=== PATIENT | male | born 1950 | race Caucasian/White ===

== ENCOUNTER 2018-07-09 11:05 | Emergency (ER) | payer MEDICARE ==
[~2018-07-09] VITALS: Ht 172.7 cm; Wt 86.2 kg
--- NOTE | 2018-07-09 11:38 | NUR ---
PT IS IN ROOM #2A. PT DENIES PAIN AT THIS TIME. DR PARRY EVALUATED THE PT.
[2018-07-09 11:39] LABS: BASOPHILS % (AUTO) 0.6 % (0.0-2.0); EOSINOPHILS % (AUTO) 0.4 % (0.0-7.0); HEMATOCRIT 38.9 % (36.7-47.1); HEMOGLOBIN 13.5 g/dL (12.5-16.3); LYMPHOCYTES # (AUTO) 1.9 K/uL (20.0-40.0); LYMPHOCYTES % (AUTO) 33.8 % (20.5-51.5); MEAN CORPUSCULAR HEMOGLOBIN 36.5 uug (23.8-33.4); MEAN CORPUSCULAR HGB CONC 35 g/dL (32.5-36.3); MEAN CORPUSCULAR VOLUME 105.2 fL (73.0-96.2); MONOCYTES # (AUTO) 0.4 K/uL (2.0-10.0); MONOCYTES % (AUTO) 6.7 % (0.0-11.0); NEUTROPHILS # (AUTO) 3.3 K/uL (1.8-8.9); NEUTROPHILS % (AUTO) 58.5 % (38.5-71.5); PLATELET COUNT (AUTO) 219 K/uL (152-348); WHITE BLOOD COUNT (AUTO) 5.7 K/uL (3.6-10.2)
[2018-07-09 11:43] LABS: CREATININE 0.7 mg/dL (0.6-1.3); POTASSIUM 3.7 mmol/L (3.5-5.1)
--- NOTE | 2018-07-09 11:50 | NUR ---
Pt is sleeping at this time with no s/s of acute distress noted.
[2018-07-09 11:56] LABS: BILIRUBIN,DIRECT 0.1 mg/dL (0.0-0.2); BILIRUBIN,TOTAL 0.4 mg/dL (0.2-1.0); TOTAL PROTEIN, SERUM 6.9 g/dL (6.4-8.2)
--- NOTE | 2018-07-09 16:13 | NUR ---
Patient given written and verbal discharge instructions. Patient verbalizes understanding of instructions. Patient is ambulatory with walker. Refuses offer of [facility] placement, Patient refused list of available shelters in surrounding area. Pt was provided with a meal, was offered new clothes but also refused. Pt stated " I don't need anything, I just want to go ".
[2018-07-09 16:17] VITALS: BP 135/79
== END 2018-07-09 16:18 | disposition home or self-care (01) ==
LOC: ER 11:07
DX: R07.9 Chest pain, unspecified (principal); I25.2 Old myocardial infarction; Z59.0 Homelessness
CPT/HCPCS: 36415; 71045; 80048; 80076; 84484 ×2; 85025; 93005 ×2; 99284; G0480; 70030-TC; A4663

== ENCOUNTER 2019-12-22 10:10 | Inpatient (IN) | payer MEDICARE, OTHER ==
[~2019-12-22] VITALS: Ht 172.7 cm; Wt 90.3 kg
--- NOTE | 2019-12-22 10:16 | NUR ---
Dr. Raymundo here at the bedside for MSE.
[2019-12-22] MEDS ORDERED: LORAZEPAM 2 MG/1 ML VIAL ONE (10:20)
--- NOTE | 2019-12-22 10:23 | NUR ---
IM Ativan given one time per MD. Pt noted to be aggressive and uncooperative with plan of care. deputy building guard at the bedside and pt placed on two-point restraints.
[2019-12-22] MEDS ORDERED: LORAZEPAM 2 MG/1 ML VIAL IM ONE (10:30)
[2019-12-22 11:02] LABS: BASOPHILS % (AUTO) 0.4 % (0.0-2.0); EOSINOPHILS % (AUTO) 0.1 % (0.0-7.0); HEMATOCRIT 40.4 % (36.7-47.1); HEMOGLOBIN 13.3 g/dL (12.5-16.3); LYMPHOCYTES # (AUTO) 1.3 K/uL (20.0-40.0); MEAN CORPUSCULAR HEMOGLOBIN 30.3 uug (23.8-33.4); MEAN CORPUSCULAR HGB CONC 33 g/dL (32.5-36.3); MEAN CORPUSCULAR VOLUME 92.1 fL (73.0-96.2); MONOCYTES # (AUTO) 0.8 K/uL (2.0-10.0); MONOCYTES % (AUTO) 6.6 % (0.0-11.0); NEUTROPHILS # (AUTO) 9.8 K/uL (1.8-8.9); NEUTROPHILS % (AUTO) 81.9 % (38.5-71.5); PLATELET COUNT (AUTO) 209 K/uL (152-348); RED BLOOD CELL COUNT(AUTO) 4.38 MIL/uL (4.06-5.63); WHITE BLOOD COUNT (AUTO) 11.9 K/uL (3.6-10.2)
[2019-12-22 11:16] LABS: CARBON DIOXIDE 23 mmol/L (21-32); CHLORIDE 105 mmol/L (98-107); CREATININE 1.1 mg/dL (0.6-1.3); GLUCOSE 89 mg/dL (74-106); POTASSIUM 3.8 mmol/L (3.5-5.1); UREA NITROGEN, BLOOD 10 mg/dL (7-18)
[2019-12-22 11:21] LABS: ALANINE AMINOTRANSFERASE 12 U/L (16-63); ALKALINE PHOSPHATASE 117 U/L (50-136); ASPARTATE AMINOTRANSFERASE 19 U/L (15-37); BILIRUBIN,DIRECT 0.2 mg/dL (0.0-0.2); BILIRUBIN,TOTAL 0.8 mg/dL (0.2-1.0); TOTAL PROTEIN, SERUM 7.2 g/dL (6.4-8.2)
[2019-12-22 11:25] LABS: ETHANOL 16 MG/DL (0-0)
[2019-12-22 11:28] LABS: ACETAMINOPHEN < 2.0 ug/mL (10-30)
--- NOTE | 2019-12-22 11:41 | NUR ---
Spoke with Paolo Genao (Crisis team) on the telephone for psych crisis eval and stated he'll be in to see pt.
[2019-12-22 11:50] LABS: THYROID STIMULATING HORMONE 2.724 mIU/mL (0.358-3.740)
[2019-12-22 11:52] LABS: *BILIRUBIN,URIN NEGATIVE (NEGATIVE); *BLOOD, URINE NEGATIVE (NEGATIVE); *CLARITY,URINE CLEAR (CLEAR); *COLOR,URINE YELLOW (YELLOW); *KETONES,URINE 1+ (NEGATIVE); *UROBILINOGEN,URINE 0.2 E.U./dl (NORMAL); LEUKOCYTE ESTERASE ,URINE NEGATIVE (NEGATIVE); NITRITE, URINE NEGATIVE (NEGATIVE); UGLUCOSE NEGATIVE (NEGATIVE)
[2019-12-22 12:07] LABS: BACTERIA,URINE NONE SEEN /HPF (NONE SEEN); MUCUS,URINE FEW /LPF (0-FEW); RBC,URINE 0-3 /HPF (0-3); SQUAMOUS EPITHELIAL CELL,UR FEW /HPF (NONE SEEN); WBC,URINE 0-3 /HPF (0-3)
[2019-12-22 12:22] LABS: *AMPHETAMINE, URINE NEGATIVE (NEGATIVE); *BARBITURATE, URINE NEGATIVE (NEGATIVE); *CANNABINOID, URINE NEGATIVE (NEGATIVE); *COCCAINE, URINE NEGATIVE (NEGATIVE); *OPIATE, URINE NEGATIVE (NEGATIVE); *PHENCYCLIDINE SCREEN,URINE NEGATIVE (NEGATIVE)
--- NOTE | 2019-12-22 12:32 | NUR ---
Paolo Mae here to phuong pt. Addendum: 12/22/19 at 1603 by SULEMA Pt placed on [id number] hold.
--- NOTE | 2019-12-22 15:00 | NUR ---
Full telephone SBAR report given to SHAD Hirsch.
--- NOTE | 2019-12-22 15:50 | NUR ---
Wheeled pt to [facility] for admission. Pt stable and nad noted upon admission.
[2019-12-22 16:15] VITALS: BP 105/75
--- NOTE | 2019-12-22 16:15 | NUR ---
Gps/Elevator Runner- Patient received from ER via wheel chair. . Aware of date and time , oriented x 2, forgetful. Unsteady gait. ambulated to the bathroom with front wheel walker, needing verbal cueing in sequencing tasks. Bladder incontinence noted. Poorly groomed toe nails , they are long , needed Hardboard Panel Printer. When asked patient why he is here in [facility] stated" they all want my money, i was at the bus station to go to [facility] when they all came and brought me here". Noted easily gets irritable when questions asked, demanding to see his belongings claimed he has money and needed to be put in the bank.Noted patient has 1 bottle of Vodka (1/2 bottle) .Noted forgetfulness, demanding behavior,agry affect during interview/admission. Pm care provided,safety reviewed and emphasized.
[2019-12-22] MEDS ORDERED: ZOLPIDEM 5 MG TABLET PO PRN (16:30)
[2019-12-22] MEDS ORDERED: MAG HYDROX/AL HYDROX/SIMETH 30 ML LIQUID UDC PO PRN (16:30)
[2019-12-22] MEDS ORDERED: BLOOD SUGAR DIAGNOSTIC 1 EACH STRIP VI ONE (16:30)
[2019-12-22] MEDS ORDERED: LORAZEPAM 0.5 MG TABLET PO PRN (16:30)
[2019-12-22] MEDS ORDERED: MAGNESIUM HYDROXIDE 30 ML LIQUID UDC PO PRN (16:30)
[2019-12-22] MEDS ORDERED: ACETAMINOPHEN 325 MG TABLET PO PRN (16:30)
--- NOTE | 2019-12-22 21:17 | NUR ---
Patient received in bed awake. Patient is easily gets anxious, irritable, demanding , forgetful. Safe environment provided, frequent rounding, and clutter free environment. Bed in lowest position, bed locked, and bed alarm on while in bed.
[2019-12-22] MEDS: CHLORDIAZEPOXIDE HCL 25 MG CAPSULE PO SCH (22:15)
[2019-12-23] MEDS: CHLORDIAZEPOXIDE HCL 25 MG CAPSULE PO SCH ×3 (06:11→21:13)
[2019-12-23 07:30] VITALS: BP 108/72
[2019-12-23 07:47] LABS: BILIRUBIN,TOTAL 1.1 mg/dL (0.2-1.0); CREATININE 1.1 mg/dL (0.6-1.3); POTASSIUM 4.1 mmol/L (3.5-5.1); TOTAL PROTEIN, SERUM 6.5 g/dL (6.4-8.2)
[2019-12-23] MEDS: FOLIC ACID 1 MG TABLET PO SCH (08:29)
[2019-12-23] MEDS: THIAMINE HCL 100 MG TABLET PO SCH (08:29)
--- NOTE | 2019-12-23 08:53 | NUR ---
Gps/Wind Tunnel Engineer- Stayed in the dinning room during his breakfast, compliant with medications, requested Ensure . Ambulates around with FWW. Would like to see his Medical Doctor and Psychiatrist, reassured. Had bee pleasant and redirectable
--- NOTE | 2019-12-23 13:14 | NUR ---
Gps/Lineman Service Or Work Dispatcher-Patient was incontinent of bowels , was showered w/ min/mod. assist. Ambulated with FWW. adequate fluid intake. Dr Murillo was in to see patient. Interactive, cooperative , but episodes of irritability , and demanding behavior.Stayed in the dinning room during lunch time
[2019-12-23 16:00] VITALS: BP 116/79
--- NOTE | 2019-12-23 17:40 | NUR ---
Gps/Monomer Purification Operator- Attended group therapy, stayed in the activity room most of the day, quiet, safety reviewed and emphasized.
[2019-12-23 21:33] VITALS: BP 127/83
--- NOTE | 2019-12-24 00:30 | NUR ---
RECEIVED PATIENT SITTING UP IN BED.MILDLY IRRITABLE WHEN QUESTIONS ARE ASKED.HOWEVER COMPLIANT WITH MEDICATIONS. VISUAL CHECKS MADE ON HIM FOR SAFETY. WILL CONTINUE TO MONITOR.
[2019-12-24] MEDS: CHLORDIAZEPOXIDE HCL 25 MG CAPSULE PO SCH ×3 (06:26→21:35)
[2019-12-24 07:30] VITALS: BP 103/72
--- NOTE | 2019-12-24 08:00 | NUR ---
AT 06:45 PATIENT WAS FOUND SITTING ON THE FLOOR NEXT TO HIS WALKER. HE STATED THAT HE WAS GOING TO THE BATHROOM AND MISSED A STEP.STAFF ASSISTED HIM UP BODY CHECK ASSESSMENT WAS DONE AND NO BRUISE, BUMPS OR SKIN TEAR FOUND.ROM ADEQUATE. ABLE TO AMBULATE TO THE BATHROOM WITH FWW.HE ALSO DENIED PAIN. DR. ANGULO/KOKO WAS NOTIFIED.V/S 111/69,97.9,84, 18.02SAT 94%RA. NO FAMILY TO BE NOTIFIED. WILL ENDORSE TO DAY SHIFT TO CONTINUE TO MONITOR.
[2019-12-24] MEDS: FOLIC ACID 1 MG TABLET PO SCH (08:16)
[2019-12-24] MEDS: THIAMINE HCL 100 MG TABLET PO SCH (08:16)
[2019-12-24] MEDS: SERTRALINE HCL 50 MG TABLET PO SCH (08:16)
--- NOTE | 2019-12-24 12:00 | NUR ---
Gps/Four H Agent- Stayed in the activity room most of the morning, participating in the activity. Complaint with routine meds. safety continue to emphasized. Ambulates around with FWW.
[2019-12-24 16:00] VITALS: BP 109/77
--- NOTE | 2019-12-24 16:00 | NUR ---
Gps/Put In Beat Adjuster- P.T. worked with patient this pm, ambulated with FWW min/mod. per P.T. ambulates with small steps. Hesitancy to take his libruim this pm, claimed he does no need such med. reviewed indication /rationale. . Safety reviewed and emphasized.
--- NOTE | 2019-12-24 16:54 | NUR ---
Gps/Ferry Captain- Noted irritability , eyes wide open when he gets angry. Ambulated to the bathroom with fww, cueing provided to take a bigger steps when walking. had been continent, denies pain, no discomfort. Likes to stay in the dinning room during meals.
[2019-12-24 20:00] VITALS: BP 110/69
--- NOTE | 2019-12-25 00:14 | NUR ---
RECEIVED PATIENT IN ACTIVITY ROOM.EASILY IRRITATED WHEN QUESTIONS ARE ASKED. DENIES SI/HI BUT SUSPICIOUS OF STAFF AND WORRIES THEY HAVE STOLEN FROM HIM. REASSURED HIM HIS MONEY WAS SAFE.INITIALLY HESITANT TO TAKE MEDS BUT TOOK THEM AFTER EXPLANATIONS.NO COMPLIANT OF PAIN OR DISCOMFORT VOICED BY HIM.ONE PERSON STAND BY ASSIST AND REMINDED TO TAKE BIG STRIDES WHEN WALKING INSTEAD OF SHUFFLING FEET.VISUAL CHECKS MADE ON HIM. WILL CONTINUE TO MONITOR.
[2019-12-25] MEDS: CHLORDIAZEPOXIDE HCL 25 MG CAPSULE PO SCH (06:14)
--- NOTE | 2019-12-25 06:45 | NUR ---
SLEPT FOR APPROX.07;30 HOURS.
[2019-12-25 07:30] VITALS: BP 99/68
[2019-12-25] MEDS: THIAMINE HCL 100 MG TABLET PO SCH (08:29)
[2019-12-25] MEDS: FOLIC ACID 1 MG TABLET PO SCH (08:29)
[2019-12-25] MEDS: SERTRALINE HCL 50 MG TABLET PO SCH (08:29)
[2019-12-25] MEDS ORDERED: CHLORDIAZEPOXIDE HCL 25 MG CAPSULE PO PRN (08:45)
--- NOTE | 2019-12-25 14:09 | NUR ---
Social Work Family Contact: end worker attempted to contact patient's brother Satya ([phone]) and left a voicemail to contact this designer/writer to gather collateral.
--- NOTE | 2019-12-25 14:09 | NUR ---
Social Work Initial Discharge Plan: Patient currently resides at [address] [address]; ([phone]). This travel writer contacted the facility and left a voicemail for an admin coordinator to contact this travel writer. This travel writer contacted patient's brother Satya ([phone]) who was unavailable to gather collateral. This travel writer left a voicemail. cinder worker will work with the patient and the MD regarding appropriate discharge planning. cinder worker will form a safe and proper discharge plan.
[2019-12-25 15:40] VITALS: BP 116/68
--- NOTE | 2019-12-25 16:27 | NUR ---
Social Work Firearms Report (DOJ): Instructor Physical completed and submitted a [employer] firearms report for 5150 grave disability certification. A copy of report has been placed in patient chart.
--- NOTE | 2019-12-25 17:45 | NUR ---
safety continue to review , emphasized, stayed in the dinning room during breakfast, denies any discomfort. Noted irritability when too many questions asked.
[2019-12-25 20:00] VITALS: BP 112/64
--- NOTE | 2019-12-26 06:24 | NUR ---
VS stable, denies pain, Presents with poor insight into mental condition and reason for admission. Pt is forgetful and requires some reorientation. Noted to be irritable and anxious. Denies SI/HI and AH/VH.
[2019-12-26 07:30] VITALS: BP 113/80
[2019-12-26] MEDS: FOLIC ACID 1 MG TABLET PO SCH (08:20)
[2019-12-26] MEDS: THIAMINE HCL 100 MG TABLET PO SCH (08:20)
[2019-12-26] MEDS: SERTRALINE HCL 50 MG TABLET PO SCH (08:20)
--- NOTE | 2019-12-26 14:51 | NUR ---
Media Traffic Manager Individual Therapy: cold storage worker met with pt for brief counseling to address patient's aggressive behaviors. Patient presents calm and cooperative with this senior writer. Patient is able to make good eye contact. Patient's speech is impaired and difficult to understand. 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 Patient does not present capable of taking care of his basic needs. cold storage worker provided active listening and motivational interviewing. SW attempted to redirect patient's thought about going to a Motel and will continue to work on his discharge plan with the patient.
[2019-12-26 17:10] VITALS: BP 120/78
--- NOTE | 2019-12-26 20:00 | NUR ---
Received patient resting in bed, easily to arouse. A/Ox1. No distress noted. No s/s of pain or SOB. Vitals WNL. Patient is calm and cooperative with care.
[2019-12-26 20:19] VITALS: BP 123/80
[2019-12-27 07:30] VITALS: BP 98/68
[2019-12-27] MEDS ORDERED: HYDROXYZINE PAMOATE 25 MG CAPSULE PO PRN (08:30)
[2019-12-27] MEDS: FOLIC ACID 1 MG TABLET PO SCH (08:36)
[2019-12-27] MEDS: SERTRALINE HCL 50 MG TABLET PO SCH (08:36)
[2019-12-27] MEDS: THIAMINE HCL 100 MG TABLET PO SCH (08:36)
[2019-12-27 16:00] VITALS: BP 100/64
[2019-12-27 20:43] VITALS: BP 105/69
[2019-12-28 08:02] VITALS: BP 111/55
[2019-12-28] MEDS: FOLIC ACID 1 MG TABLET PO SCH (08:46)
[2019-12-28] MEDS: SERTRALINE HCL 50 MG TABLET PO SCH (08:46)
[2019-12-28] MEDS: THIAMINE HCL 100 MG TABLET PO SCH (08:50)
--- NOTE | 2019-12-28 10:22 | NUR ---
Social Work Note/PC Hearing Notification: parking worker contacted patient's brother Dequan, ([phone]) and notified patient's probable cause of hearing today.
--- NOTE | 2019-12-28 11:04 | NUR ---
Brief Substance Abuse Intervention: Patient was provided with a brief substance abuse intervention and referred to the following substance abuse programs: [facility] Substance Abuse Self-helpline ([phone]); [facility] [address] [place] [address] ([phone]); [facility] [address] [facility] [address] ([phone]); [facility] ([phone]); [facility] ([phone]); [facility] ([phone]); [facility] ([phone]).
--- NOTE | 2019-12-28 11:46 | NUR ---
Social Work Family Contact: mobile home lot utility worker spoke with patient's brother Satya ([phone]) and discussed discharge planning. Satya is not DPOA however is requesting to have Prashant discharged to [facility] [address] [place] [address] ([phone]). SW will follow up with the facility and see if patient can admit again. Satya was expressing his concerns about patient returning to [facility] due to access to alcohol.
--- NOTE | 2019-12-28 11:52 | NUR ---
ADAM Coordination of Care: ADAM contacted [facility] [address] [place] [address] ([phone]) and spoke with Amy marine operations coordinator requesting to review clinicals for this patient for possible admission to their facility. Amy stated she will review the clinicals and call this leader writer back with an update. ADAM faxed patient's clinicals for review (fax: [phone]). Awaiting a response. Addendum: 12/28/19 at 1439 by DICK SWANSON Spoke with Amy at the facility who stated that they can accept the patient to their facility however, they do not have available bed at this time, and they don't know when they will have availability.
--- NOTE | 2019-12-28 14:41 | NUR ---
Social Work Family Contact: paper and pulp mill worker spoke with patient's brother Satya ([phone]) and discussed about discharge plan. This software writer explained to Satya that the patient has the right to decide where he would like to de discharged as he does not have an DPOA. The patient is choosing to be discharged back to [facility]. Satya was understanding and agreed to this plan.
--- NOTE | 2019-12-28 15:12 | NUR ---
Air Conditioning Coil Assembler Individual Therapy: warp worker met with pt for brief counseling to address patient's aggressive behaviors. Patient presents calm and able to engage in a meaningful conversation. SW discussed discharge plans with the patient and provided patient with the options of going back to [facility] or [facility]. Pt stated he wants to go back to [facility]. This inspector automatic typewriter informed patient that his brother, Satya, is concerned about him and would like to follow up with him. Pt stated, "I don't really care what he wants". This inspector automatic typewriter acknowledged patient's feelings and decisions.
[2019-12-28 16:01] VITALS: BP_SYST 109; BP_SYST 122; BP_DIAS 55; BP_DIAS 76
--- NOTE | 2019-12-28 16:30 | NUR ---
Gps/Life Skills Instructor- Stayed in the activity room most of the day, assisted to amulate to the bathroom to void, gait shuffles, needed Continue to monitor needs. verbal cueing in sequencing his tasks, instructed to take bigger steps during ambulation .
[2019-12-28 20:00] VITALS: BP 124/77
--- NOTE | 2019-12-28 20:00 | NUR ---
Patient received into care, laying in bed, resting comfortably. Patient is alert/oriented 2-3 and has no complaints of pain or discomfort at this time. All safety and fall precaution measures are in place. Will continue to monitor and assess.
--- NOTE | 2019-12-29 05:43 | NUR ---
This nurse received call from Juancarlos in lab who advised COVID test results for this patient are negative.
--- NOTE | 2019-12-29 06:26 | NUR ---
Patient slept throughout night with no complaints of pain or discomfort verbalized or noted/observed by this nurse. Patient was compliant with all aspects of care this shift. All nursing needs were met promptly and patient is warm, dry, and comfortable. All safety and fall precaution measures remain in place.
[2019-12-29 07:30] VITALS: BP 128/76
[2019-12-29] MEDS: THIAMINE HCL 100 MG TABLET PO SCH (08:59)
[2019-12-29] MEDS: FOLIC ACID 1 MG TABLET PO SCH (08:59)
[2019-12-29] MEDS: SERTRALINE HCL 50 MG TABLET PO SCH (08:59)
--- NOTE | 2019-12-29 09:04 | NUR ---
SW Discharge Note: Patient will be discharged back to [facility] [address] , [place] [address] ([phone]). Patient will be provided with [employer] today at 2:30pm spoke with Richard ([phone]). Spoke with Juan and Juliet in admissions at the facility who confirmed patients arrival today back to [facility]. Patients brother, Satya Rothman ([phone]) is made aware and is agreeable with discharge plan. Patient is aware and agreeable with discharge plan. Patient presents alert and oriented times 3. Patient presents with appropriate mood and congruent affect. Patient denies suicidal or homicidal ideation. Patient will be following up with his psychiatrist Dr. Bartholomew and wearing apparel presser Dr. Shaver at [facility]. Patient was provided with a brief substance abuse intervention and referred to the following substance abuse programs: [facility] Substance Abuse Self-helpline ([phone]); [facility] [address] [place] [address] ([phone]); [facility] [address] [facility] [address] ([phone]); [facility] ([phone]); [facility] ([phone]); [facility] ([phone]); [facility] ([phone]).
--- NOTE | 2019-12-29 14:37 | NUR ---
Discharge instructions provided to the patient with verbalized understanding. Discharge papers signed by and given to the patient. Assisted with his needs promptly. Patient is alert, oriented x 3, ambulatory with walker, not in any form of distress, on room air. He denies any pain or discomfort at this time. Discharge instructions/report given to the staff at [facility] c/o Cori Lilly. Patient discharged to [facility], picked up by [employer] transferred via wheelchair at 2:10PM. All belongings and valuables well accounted for and brought with the patient.
== END 2019-12-29 14:20 | DRG 881 ==
LOC: ER 10:10 → GPS 15:28
PROVIDERS: ADMIT Psychiatry & Neurology Psychiatry; ATTEND Nurse Practitioner Acute Care
DX: F32.9 Major depressive disorder, single episode, unspecified (principal); F10.229 Alcohol dependence with intoxication, unspecified; F10.239 Alcohol dependence with withdrawal, unspecified; Y90.0 Blood alcohol level of less than 20 mg/100 ml; D72.829 Elevated white blood cell count, unspecified; E16.2 Hypoglycemia, unspecified; F39 Unspecified mood [affective] disorder; I10 Essential (primary) hypertension
CPT/HCPCS: 36415; 70030-TC; 71045; 80307; 80329; 84443; 85025; 85730; 87086; 93005; G0480; G0480-TC; J2060; U0003-CS